=== PATIENT | male | born 1960 | race Caucasian/White ===

== ENCOUNTER → 2019-12-14 | Outpatient (REF) | LOC: M EMP 05:05 → EDSTATUS 12-24 14:24 | PROVIDERS: ATTEND Anesthesiology | DX: Z11.59 Encounter for screening for other viral diseases (principal) ==

== ENCOUNTER 2020-02-11 10:34 | Outpatient (RCR) | END 2020-02-15 | LOC: M EMP 10:34 | PROVIDERS: ATTEND Family Medicine | DX: Z11.59 Encounter for screening for other viral diseases (principal) ==

== ENCOUNTER → 2020-05-26 | Outpatient (REF) | payer SELFPAY | LOC: M LABSMTC 12:40 → EDSTATUS 12:40 | PROVIDERS: ATTEND Pediatrics | DX: Z20.828 Contact with and (suspected) exposure to other viral communicable diseases (principal) ==

== ENCOUNTER → 2022-06-21 | Outpatient (CLI) | payer BC, OTHER ==
[2022-06-21 13:29] LABS: BASO # 0.1 10^3/uL (0.0-0.2); EOS # 0.1 10^3/uL (0.0-0.5); EOS % 1.2 % (0.0-3.0); HEMATOCRIT 55.7 % (42.0-52.0); LYMPH # 1.4 10^3/uL (1.5-5.0); LYMPH % 23.1 % (24.0-44.0); MEAN CORPUSCULAR HEMOGLOBIN 32.2 pg (27.0-33.0); MEAN CORPUSCULAR HGB CONC 34.6 g/dl (32.0-36.5); MEAN CORPUSCULAR VOLUME 92.8 fl (80.0-96.0); MONO # 0.5 10^3/uL (0.0-0.8); MONO % 7.9 % (2.0-8.0); NEUTROPHILS # 3.9 10^3/uL (1.5-8.5); NEUTROPHILS % 66.5 % (36.0-66.0); PLATELET COUNT, AUTOMATED 149 10^3/uL (150-450); WHITE BLOOD COUNT 5.9 10^3/uL (4.0-10.0)
[2022-06-21 13:36] LABS: HEMOGLOBIN 19.3 g/dl (13.5-17.5)
[2022-06-21 13:51] LABS: HEMOGLOBIN A1c 4.8 % (4.0-6.0)
[2022-06-21 14:01] LABS: FREE T4 1.23 NG/DL (0.89-1.76)
[2022-06-21 14:02] LABS: THYROID STIMULATING HORMONE 3.277 uIU/ML (0.55-4.78)
[2022-06-21 14:05] LABS: ALBUMIN 4.2 G/DL (3.2-5.2); ALKALINE PHOSPHATASE 80 U/L (46-116); ALT/SGPT 57 U/L (7.0-40); AST/SGOT 29 U/L (<34); BLOOD UREA NITROGEN 14 MG/DL (9-23); CALCIUM LEVEL 9.2 MG/DL (8.5-10.1); CARBON DIOXIDE LEVEL 28 MMOL/L (20-31); CHLORIDE LEVEL 102 MMOL/L (98-107); CHOLESTEROL LEVEL 207 MG/DL (<200); CHOLESTEROL RISK RATIO 4.58 (<5); CREATININE FOR GFR 0.93 MG/DL (0.70-1.30); GLOMERULAR FILTRATION RATE > 60.0 (>56); GLUCOSE, FASTING 77 MG/DL (60-100); HDL CHOLESTEROL 45.1 MG/DL (>40); LDL CHOLESTEROL 142.9 MG/DL (<100); NON-HDL-C 162 MG/DL; POTASSIUM SERUM 4.4 MMOL/L (3.5-5.1); SODIUM LEVEL 138 MMOL/L (136-145); TRIGLYCERIDES LEVEL 95 MG/DL (<150)
== END ==
LOC: M LAB 12:55
PROVIDERS: ATTEND Physician Assistant
DX: Z13.220 Encounter for screening for lipoid disorders (principal); Z13.29 Encounter for screening for other suspected endocrine disorder; R35.1 Nocturia
CPT/HCPCS: 36415; 80053; 80061; 83036; 84439; 84443; 85025; G0103

== ENCOUNTER 2023-03-29 08:10 | Day surgery (SDC) | payer BC ==
[~2023-03-29] VITALS: Ht 180.3 cm; Wt 95.7 kg
[~2023-03-29 08:10] MED LIST: BAYE81TA10 PO; CEFA500C2 PO; NS 1,000 ML IV ONE; TADA10TA; TIZA10TA; VITA-183 PO; ZANA4CAP PO
[2023-03-29] MEDS ORDERED: LIDOCAINE 2% 100MG/5ML SDV (FOR ANES.) As Ordered ONE (09:19)
[2023-03-29] MEDS ORDERED: fentaNYL 100 MCG/2 ML INJECTION As Ordered ONE (09:19)
[2023-03-29] MEDS ORDERED: propofoL 500 MG/50 ML VIAL As Ordered ONE (09:19)
[2023-03-29 10:21] VITALS: TEMP 97
[2023-03-29 10:49] VITALS: BP 126/74; O2SAT 97
== END 2023-03-29 10:50 | disposition home or self-care (01) ==
LOC: M OPP 08:10
PROVIDERS: ATTEND Internal Medicine Gastroenterology
DX: Z12.11 Encounter for screening for malignant neoplasm of colon (principal); D12.6 Benign neoplasm of colon, unspecified; K64.4 Residual hemorrhoidal skin tags; K64.8 Other hemorrhoids; K57.30 Diverticulosis of large intestine without perforation or abscess without bleeding; K29.70 Gastritis, unspecified, without bleeding; F17.220 Nicotine dependence, chewing tobacco, uncomplicated; G47.30 Sleep apnea, unspecified; Z99.89 Dependence on other enabling machines and devices; Z79.82 Long term (current) use of aspirin; Z79.891 Long term (current) use of opiate analgesic; Z79.899 Other long term (current) drug therapy
CPT/HCPCS: 43239; 45385; 88305; J3010

== ENCOUNTER 2023-11-26 06:04 | Day surgery (SDC) | payer BC ==
[~2023-11-26] VITALS: Ht 180.3 cm; Wt 98.3 kg
[~2023-11-26 06:04] MED LIST changes: -NS 1,000 ML IV ONE; -TADA10TA; +TADA10TA PO; +VALA1TAB5 PO
[2023-11-26] MEDS ORDERED: LR 1,000 ML IV SCH ×2 (06:15→09:50)
[2023-11-26] MEDS ORDERED: MIDAZOLAM INJ 2MG/2ML VIAL As Ordered ONE (07:11)
[2023-11-26] MEDS ORDERED: fentaNYL 100 MCG/2 ML INJECTION As Ordered ONE (07:11)
[2023-11-26] MEDS ORDERED: propofoL 200 MG/20 ML VIAL As Ordered ONE (07:11)
[2023-11-26] MEDS ORDERED: LIDOCAINE 2% 100MG/5ML SDV (FOR ANES.) As Ordered ONE (07:11)
[2023-11-26] MEDS: ceFAZolin SOD 2 GM in IV 1 EA IV ONE (07:55)
[2023-11-26] MEDS: POVIDONE-IODINE 5% OPHTH PREP SOL 30ML As Ordered ONE (08:00)
[2023-11-26] MEDS ORDERED: PHENYLephrine 500MCG 5ML (100MCG/ML) SYRINGE As Ordered ONE (08:24)
[2023-11-26] MEDS: LIDOCAINE W/EPINEPHRINE 1% 20ML VIAL As Ordered ONE (08:24)
[2023-11-26] MEDS ORDERED: POLYSPORIN OPHTH OINT 3.5 GM As Ordered ONE (09:14)
[2023-11-26] MEDS: BACITRACIN OINTMENT 30GM TUBE As Ordered ONE (09:17)
[2023-11-26] MEDS: ERYTHROMYCIN OPHTH OINT As Ordered ONE (09:17)
[2023-11-26] MEDS: LIDOCAINE 2% W/EPINEPHRINE 20ML VIAL **PRES FREE As Ordered ONE (09:41)
[2023-11-26] MEDS: TETRACAINE 0.5% OPHTH SOLN 4ML As Ordered ONE (09:42)
[2023-11-26] MEDS ORDERED: traMADol 50 MG TAB PO ONE (09:50)
[2023-11-26] MEDS ORDERED: HYDROMORPHONE HCL 0.5 MG/ 0.5 ML SYRINGE IV PRN (09:50)
[2023-11-26] MEDS ORDERED: fentaNYL 100 MCG/2 ML INJECTION IV PRN (09:50)
[2023-11-26] MEDS ORDERED: TRAM50TA2 PO (10:15)
[2023-11-26 10:40] VITALS: BP 117/74; TEMP 97.7; O2SAT 96
== END 2023-11-26 10:40 | disposition home or self-care (01) ==
LOC: M SDC 06:04
PROVIDERS: ATTEND Plastic Surgery Surgery of the Hand
DX: H02.834 Dermatochalasis of left upper eyelid (principal); H02.831 Dermatochalasis of right upper eyelid; H57.813 Brow ptosis, bilateral; G47.30 Sleep apnea, unspecified; Z72.0 Tobacco use; Z79.899 Other long term (current) drug therapy
CPT/HCPCS: 15822; 67900; 88300; J0690; J2250; J2371; J3010